=== PATIENT | male | born 1985 | race African-American/Black ===

== ENCOUNTER 2017-09-12 12:13 | Emergency (ER) | payer OTHER ==
[2017-09-12 12:29] VITALS: BP 112/68; PULSE 72; TEMP 98.6; BMI 31.0
--- NOTE | 2017-09-12 12:42 | PDOC ---
History of Present Illness - General Chief Complaint: Sore Throat Stated Complaint: SORE THROAT AND PAIN TO LEFT EAR Time Seen by Provider: 09/12/17 12:25 - History of Present Illness Initial Comments: 09/12/17 14:10 Chief complaint: Sore throat History of present illness: Sore throat for several days. Difficulty swallowing. No fever/chills, chest pain, shortness of breath, cough. Review of systems: As above. Otherwise, patient is concerned that his girlfriend has an STD. He has no dysuria, urethral discharge, or other genital symptoms. Past medical history: Patient denies serious medical or surgical problems past her present, current medication Social/family history reviewed and noncontributory Physical exam: Alert oriented 3 well-developed well-nourished no acute distress cheerful and cooperative Afebrile, vital signs normal HEENT: Conjunctivae, ears clear. Throat minimally injected without exudate, swelling, mass, or lesions. No other lesions or inflammation of the oropharynx Neck supple without bruit mass or nodes Lungs clear, full breath sounds bilaterally, no wheezes rales or rhonchi CV regular rate without murmur rubs or gallops pulses full and symmetric Abdomen benign Extremities no CCE Skin clear, no rash, adequate turgor and wet mucous membranes Neurological intact Impression: Viral pharyngitis, rule out strep, rule out Neisseria Plan: Strep screen, Neisseria culture, further treatment depending on results. Symptomatic treatment until final culture results are available. Past History - Past Medical History Allergies/Adverse Reactions: Allergies Allergy/AdvReac Type Severity Reaction Status Date / Time No Known Allergies Allergy Verified 09/12/17 12:17 Asthma: Yes COPD: No - Immunization History Immunization Up to Date: Yes - Suicide/Smoking/Psychosocial Hx Smoking History: Never smoked Have you smoked in the past 12 months: No Number of Cigarettes Smoked Daily: 4 Information on smoking cessation initiated: Yes 'Breaking Loose' booklet given: 09/12/17 Hx Alcohol Use: Yes (SOCIAL) Drug/Substance Use Hx: No Substance Use Type: Alcohol *Physical Exam - Vital Signs Last Vital Signs Temp Pulse Resp BP Pulse Ox 98.6 F 72 16 112/68 100 09/12/17 12:16 09/12/17 12:16 09/12/17 12:16 09/12/17 12:16 09/12/17 12:16 *DC/Admit/Observation/Transfer Diagnosis at time of Disposition: Acute viral pharyngitis - Discharge Dispostion Disposition: HOME Condition at time of disposition: Stable Admit: No - Referrals - Patient Instructions Printed Discharge Instructions: DI for Viral Pharyngitis Additional Instructions: See your primary physician if no improvement in 5-7 days for further evaluation and treatment - Post Discharge Activity
== END 2017-09-12 14:04 | disposition home or self-care (01) ==
LOC: FER 12:13
DX: J02.8 Acute pharyngitis due to other specified organisms (principal); B97.89 Other viral agents as the cause of diseases classified elsewhere; J45.909 Unspecified asthma, uncomplicated; Z72.0 Tobacco use
CPT/HCPCS: 36415; 87070; 87430; 87491; 87591; 99281-25